=== PATIENT | male | born 1985 | race Caucasian/White ===

== ENCOUNTER 2024-06-10 21:48 | Emergency (ER) | payer SELFPAY ==
[~2024-06-10] VITALS: Ht 190.5 cm; Wt 97.5 kg
[2024-06-10 21:51] VITALS: BP 116/96; PULSE 108; RESP 22; TEMP 98.5; O2SAT 97
[2024-06-10 23:06] VITALS: BP 116/96; PULSE 108; RESP 22; TEMP 98.5; O2SAT 97
== END 2024-06-10 23:55 ==
LOC: MED 21:48
DX: S01.81XA Laceration without foreign body of other part of head, initial encounter (principal); X58.XXXA Exposure to other specified factors, initial encounter; Y93.89 Activity, other specified; Y92.89 Other specified places as the place of occurrence of the external cause; Y99.8 Other external cause status
CPT/HCPCS: 99283